=== PATIENT | female | born 1975 | race Caucasian/White ===

== ENCOUNTER → 2020-03-24 | Outpatient (CLI) | payer OTHER ==
[~2020-03-24] MED LIST: ADDERALL 10 MG10 MG PO; ASPIRIN325 PO; ATIVAN0.5 MG PO; ZOFRAN ODT4 MG PO
== END ==
LOC: SJCVCIMAG 09:51
PROVIDERS: ATTEND Nuclear Medicine Nuclear Cardiology
DX: I87.2 Venous insufficiency (chronic) (peripheral) (principal); M79.89 Other specified soft tissue disorders; M79.604 Pain in right leg; M79.605 Pain in left leg

== ENCOUNTER → 2020-04-05 | Outpatient (CLI) | payer OTHER ==
[~2020-04-05] VITALS: Ht 172.7 cm; Wt 109.8 kg
[~2020-04-05] MED LIST changes: +FUROSEMIDE 20 M20 MG PO
[2020-04-05 10:12] VITALS: BP 118/58
[2020-04-05 10:17] LABS: HEMATOCRIT 36.1 % (37.0-47.0); HEMOGLOBIN 12.1 gm/dL (12.0-15.0); MCH 30.3 pg (26.0-34.0); MCHC 33.5 g/dL (28.0-37.0); MCV 90.4 fL (80.0-100.0); RBC 3.99 mil/uL (4.20-5.00); RDW 14.8 % (10.5-14.5)
[2020-04-05 10:32] LABS: CALCIUM 8.7 mg/dL (8.5-10.1); CREATININE 0.8 mg/dL (0.6-1.0)
== END | disposition home or self-care (01) ==
LOC: CATH 09:17
PROVIDERS: ATTEND Nuclear Medicine Nuclear Cardiology
DX: I87.1 Compression of vein (principal); I87.323 Chronic venous hypertension (idiopathic) with inflammation of bilateral lower extremity; R22.43 Localized swelling, mass and lump, lower limb, bilateral; E78.5 Hyperlipidemia, unspecified; G43.909 Migraine, unspecified, not intractable, without status migrainosus; D68.2 Hereditary deficiency of other clotting factors; Z98.890 Other specified postprocedural states; Z79.899 Other long term (current) drug therapy; Z88.0 Allergy status to penicillin; Z88.8 Allergy status to other drugs, medicaments and biological substances

== ENCOUNTER 2021-04-16 18:31 | Emergency (ER) | payer OTHER ==
[~2021-04-16] VITALS: Ht 172.7 cm; Wt 99.8 kg
[2021-04-16 18:45] VITALS: BP 112/67
[2021-04-16] MEDS ORDERED: VALIUM10 MG PO (20:12)
[2021-04-16] MEDS ORDERED: MEDROLDOSEPACK PO (20:12)
== END 2021-04-16 20:43 | disposition home or self-care (01) ==
LOC: ER 18:31
DX: M25.512 Pain in left shoulder (principal); G43.909 Migraine, unspecified, not intractable, without status migrainosus; E78.5 Hyperlipidemia, unspecified; Z98.890 Other specified postprocedural states; Z79.899 Other long term (current) drug therapy; Z88.6 Allergy status to analgesic agent; Z88.0 Allergy status to penicillin; Z88.8 Allergy status to other drugs, medicaments and biological substances; Z91.09 Other allergy status, other than to drugs and biological substances

== ENCOUNTER 2021-08-15 07:19 | Emergency (ER) | payer OTHER ==
[~2021-08-15] VITALS: Ht 172.7 cm; Wt 104.3 kg
[~2021-08-15 07:19] MED LIST changes: +MEDROLDOSEPACK PO; +VALIUM10 MG PO
[2021-08-15] MEDS ORDERED: OZEMPIC1 MG/0.71 SUBQ (07:38)
[2021-08-15] MEDS ORDERED: ROXICODONE5 MG PO (07:39)
[2021-08-15 08:09] LABS: ABSOLUTE NEUTROPHILS 6.3 thou/uL (1.4-8.2); BASOPHILS 0.8 % (0.0-2.0); EOSINOPHILS 2.2 % (0.0-3.0); HEMATOCRIT 35.9 % (37.0-47.0); HEMOGLOBIN 12.2 gm/dL (12.0-15.0); LYMPHOCYTES 19.3 % (24.0-44.0); MCH 29.5 pg (26.0-34.0); MCHC 33.8 g/dL (28.0-37.0); MCV 87.1 fL (80.0-100.0); MONOCYTES 7.8 % (1.0-8.0); PLATELET COUNT 275 thou/uL (150-400); POLYS 69.9 % (36.0-66.0); RBC 4.12 mil/uL (4.20-5.00); RDW 13.9 % (10.5-14.5)
[2021-08-15 08:18] LABS: ANION GAP 9 mmol/L (7-16); BUN 10 mg/dL (7-18); CALCIUM 8.4 mg/dL (8.5-10.1); CHLORIDE 103 mmol/L (98-107); CO2 25 mmol/L (21-32); CREATININE 0.8 mg/dL (0.6-1.0); GLUCOSE 96 mg/dL (74-106); POTASSIUM 3.7 mmol/L (3.5-5.1); SODIUM 137 mmol/L (136-145)
[2021-08-15 08:25] LABS: DIRECT BILIRUBIN < 0.1 mg/dL (<0.1-0.2); LIPASE 78 U/L (73-393); SGOT 24 U/L (15-37); SGPT 37 U/L (14-59); TOTAL BILIRUBIN 0.5 mg/dL (0.2-1.0); TOTAL PROTEIN 7.1 g/dL (6.4-8.2)
[2021-08-15 09:19] LABS: URINE BILIRUBIN NEGATIVE (Negative); URINE BLOOD NEGATIVE (Negative); URINE COLOR YELLOW; URINE GLUCOSE-RANDOM* NEGATIVE (Negative); URINE KETONES NEGATIVE (Negative); URINE LEUKOCYTES-REFLEX TRACE (Negative); URINE NITRITE-REFLEX NEGATIVE (Negative); URINE PROTEIN (DIPSTICK) NEGATIVE (Negative); URINE SPECIFIC GRAVITY 1.025 (1.005-1.035); URINE UROBILINOGEN 0.2 E.U./dl (0.2-1.0)
[2021-08-15 09:20] LABS: URINE CLARITY HAZY
[2021-08-15] MEDS ORDERED: PERCOCET 5-3251 EACH PO (09:44)
[2021-08-15] MEDS ORDERED: LEVOFLOXACIN750 MG PO (09:44)
[2021-08-15 10:22] VITALS: BP 100/53
== END 2021-08-15 10:23 | disposition home or self-care (01) ==
LOC: ER 07:19
PROVIDERS: Student in an Organized Health Care Education/Training Program
DX: R10.31 Right lower quadrant pain (principal); Z20.822 Contact with and (suspected) exposure to COVID-19; G43.909 Migraine, unspecified, not intractable, without status migrainosus; E78.5 Hyperlipidemia, unspecified; Z98.51 Tubal ligation status; Z98.890 Other specified postprocedural states; Z86.718 Personal history of other venous thrombosis and embolism; Z79.899 Other long term (current) drug therapy; Z79.891 Long term (current) use of opiate analgesic; Z88.1 Allergy status to other antibiotic agents; Z88.0 Allergy status to penicillin; Z88.6 Allergy status to analgesic agent; Z88.8 Allergy status to other drugs, medicaments and biological substances; Z91.041 Radiographic dye allergy status